=== PATIENT | female | born 1990 | race Caucasian/White ===

== ENCOUNTER 2021-05-30 09:36 | Emergency (ER) | payer BC, SELFPAY ==
[2021-05-30] VITALS (8 sets, daily range): BP systolic 115–131; BP diastolic 64–90; PULSE 70–90; RESP 18–20; TEMP 36.6–36.7; O2SAT 98–100
--- NOTE | ~2021-05-30 | US_ITS ---
EXAMINATION: US OB <= 14 weeks fetus DATE: 05/30/2021 13:00 INDICATION: Abdominal pain in first trimester TECHNIQUE: Real-time pelvic transabdominal and transvaginal ultrasound was performed. COMPARISON: None. FINDINGS: The uterus measures 6.6 x 6.5 x 5.7 cm. There is an intrauterine gestational sac. There i s a 1.4 cm hypoechoic area adjacent to the gestational sac. A yolk sac is identified. heart mo tion is identified measuring 143 7 mm beats per minute (bpm) by M-mode Doppler. The crown rump length measures 7 mm , which correlates with an estimated gestational age of 6 weeks and 4 day(s) (+/ -) 4 day(s). The right ovary measures 4.2 x 2.3 x 2.5 cm. The left ovary measures 4.2 x 2.5 x 1.6 cm. There is nor mal vascular flow in the ovaries. There is no free fluid in the pelvis. IMPRESSION: 1. Live intrauterine with an estimated gestational age of 6 weeks and 4 day(s) (+/-) 4 day( s) and an estimated delivery date of 01/19/2022. 2. Small subchronic hematoma. Reviewed, dictated and finalized at location B. IMPRESSION: 1. Live intrauterine with an estimated gestational age of 6 weeks and 4 day(s) (+/-) 4 day(s) and an estimated delivery date of 01/19/2022. 2. Small subchronic hematoma.
[2021-05-30 10:41] LABS: Basophils Percent Auto 0.2 % (0.2-1.2); Eosinophils Absolute Auto 0.1 K/mm3 (0-0.3); Eosinophils Percent Auto 0.4 % (0-4.4); Hematocrit 42.4 % (37.0-47.0); Hemoglobin 14.8 g/dL (12.0-15.0); Immature Granulocyte Absolute 0.05 K/mm3 (0.00-0.031); Immature Granulocyte Percent A 0.4 % (0-0.5); Lymphocytes Absolute Auto 1.95 K/mm3 (0.9-3.2); Lymphocytes Percent Auto 14.5 % (18.3-44.2); Mean Corpuscular HGB Conc 34.9 g/dl (32-36); Mean Corpuscular Volume 85.8 fl (80-100); Mean Platelet Volume 8.8 fl (7.4-10.4); Monocytes Absolute Auto 0.7 K/mm3 (0.1-0.6); Neutrophils Absolute Auto 10.7 K/mm3 (1.3-6.7); Neutrophils Percent Auto 79.5 % (45.5-73.1); Platelet Count Result 310 k/mm3 (150-375); Red Blood Count 4.94 M/mm3 (4.2-5.4); Red Cell Distribution Width 11.7 % (11.5-14.5); White Blood Count 13.4 K/mm3 (4.5-10.0)
[2021-05-30 10:48] LABS: Alanine Aminotransferase 27 U/L (4-35); Albumin Level 5.3 g/dL (3.5-5.1); Alkaline Phosphatase 52 U/L (38-126); Anion Gap 15 mmol/L (8-16); Aspartate Amino Transferase 39 U/L (14-36); Blood Urea Nitrogen 11 mg/dL (7-17); Calcium 9.9 mg/dL (8.4-10.2); Carbon Dioxide 22 mmol/L (22-30); Chloride 102 mmol/L (98-107); Estimated CRCL calculation 93 ml/min; Estimated Glomerular Filt Rate > 60; Glucose 86 mg/dL (65-105); Lipase 65 U/L (23-300); Potassium 3.8 mmol/L (3.4-5.0); Sodium 139 mmol/L (137-145)
[2021-05-30 10:50] LABS: Add Urine Microscopic? YES; Appearance Urine Cloudy (Clear); Bacteria Urine 2+ /hpf; Bilirubin Urine Negative (Negative); Color Urine Amber (Yellow); Glucose Urine UA Negative (Negative); Ketones Urine 2+ mg/dL (Negative); Leukocyte Esterase Ur Trace LEU/UL (Negative); Mucus Urine Heavy /lpf; Nitrate Urine Negative (Negative); Protein Urine 2+ mg/dL (Negative); Squamous Epithelial Cell Urine Many /hpf (Few)
[2021-05-30 10:53] LABS: Blood Urine Negative (Negative); Specific Grav Ur 1.031 (1.001-1.035)
--- NOTE | 2021-05-30 12:17 | ED.NAVMDI ---
HPI - Nausea/Vomiting/Diarrhea General Chief complaint: Nausea/Vomiting/Diarrhea Stated complaint: 8 wks , hyperemesis Time Seen by Provider: 05/30/21 12:10 Source: RN notes reviewed History of Present Illness HPI Narrative: Patient presents to emergency department from home for nausea and vomiting. Patient states she is approximately [address] Orosco. Patient is states she has been having nausea vomiting for the past week and was recommended by OB to come in for IV fluids patient states is associated some generalized abdominal cramping she denies any vaginal bleeding or discharge. Patient states she has been taking Zofran at home with minimal relief she denies any fevers or chills chest pain shortness of breath or any other symptoms. States she has not had an ultrasound to identify uterine uterine Related Data Allergies Allergy/AdvReac Type Severity Reaction Status Date / Time antibotics Allergy Rash Uncoded 05/30/21 12:27 Review of Systems Review of Systems: Narrative: Gen.: Denies fevers or chills Eyes: Denies eye pain or visual changENT: Denies congestion Respiratory: Denies shortness of breath or cough CV: Denies chest pain or palpitations GI: See HPI Musculoskeletal: Denies back pain or muscle pain Neuro: Denies numbness, tingling, weakness or focal weakness Skin: Denies rash Except as documented, all other systems reviewed and negative [facility] Past Medical History Medical History (Updated 05/30/21 @ 14:38 by Adalid Díaz DO) Patient denies significant medical history Social History Social History (Updated 05/30/21 @ 12:18 by Adalid Díaz DO) Smoking status: Never smoker Exam Narrative: Exam Narrative: APPEARANCE: No acute distress, nontoxic, resting in bed EYES: EOMI HEENT: Normocephalic, atraumatic, OMM RESPIRATORY: No respiratory distress Clear to auscultation bilaterally with no rhonchi wheezing or rales. CARDIOVASCULAR: Regular rate and rhythm without murmurs rubs or gallops. ABDOMINAL: Soft, nontender, nondistended, no rebound or guarding MUSCULOSKELETAl: Moves all extremities. No clubbing, cyanosis or edema. NEURO: Awake and alert. Following commands, speech normal, no focal deficits SKIN:: Warm, dry. No rashes lesions or abrasions PSYCHIATRIC: Normal affect/mood, Course Course Emergency Course: Patient states she is feeling better at this time able to drink in the ED with no emesis Called discussed with Dr. Luis Melendez presentation work-up agrees with plan for discharge to follow-up as an outpatient. Discussed UA will send for culture but will hold antibiotics at this time feels patient was dehydrated with many squamous Discussed with patient results of workup and diagnosis. Discussed need for follow-up with primary care, proper use of medication, and reasons to return to the emergency department. Patient understands and agrees to current treatment plan Vital Signs Vital signs: Vital Signs Temperature 97.8 F 05/30/21 10:05 Pulse Rate 90 05/30/21 10:05 Respiratory Rate 18 05/30/21 10:05 Blood Pressure 115/82 05/30/21 10:05 Pulse Oximetry 100 05/30/21 10:05 Temperature 98.0 F 05/30/21 12:20 Pulse Rate 77 05/30/21 12:20 Respiratory Rate 20 05/30/21 12:20 Blood Pressure 121/83 05/30/21 13:46 Pulse Oximetry 98 05/30/21 14:15 MDM - Nausea/Vomiting/Diarrhea Lab Data Result diagrams: 05/30/21 10:31 05/30/21 10:31 Labs: Lab Results 05/30/21 05/30/21 05/30/21 Range/Units 10:31 10:31 10:32 WBC 13.4 H (4.5-10.0) K/mm3 RBC 4.94 (4.2-5.4) M/mm3 Hgb 14.8 (12.0-15.0) g/dL Hct 42.4 (37.0-47.0) % MCV 85.8 (80-100) fl MCH 30.0 (26-34) pg MCHC 34.9 (32-36) g/dl RDW 11.7 (11.5-14.5) % Plt Count 310 (150-375) k/mm3 MPV 8.8 (7.4-10.4) fl Immature Gran % (Auto) 0.4 (0-0.5) % Neut % (Auto) 79.5 H (45.5-73.1)
[2021-05-30] MEDS: PROMETHAZINE HCL 25 MG/ML AMPUL 12.5 MG IV PUSH (12:52)
[2021-05-30] MEDS: SODIUM CHLORIDE 0.9% IV 1,000 ML 999 ML IV CONT ×2 (12:52→14:00)
== END 2021-05-30 15:02 | disposition home or self-care (01) ==
PROVIDERS: Emergency Medicine; Emergency Provider Emergency Medicine; PCP Nurse Practitioner Family
DX: O21.0 Mild hyperemesis gravidarum (principal); Z3A.09 9 weeks gestation of pregnancy
CPT/HCPCS: 36415; 76801; 80053; 81001; 83690; 85025; 87086; 96361; 96374; 99284; J2550; J7030

== ENCOUNTER 2021-06-08 11:58 | Observation (INO) | payer BC, SELFPAY ==
--- NOTE | 2021-06-08 11:58 | OBADM ---
This patient, Tiff Christine, admitted to the OB room OB Post 116 for observation. Patient/family oriented to hospital policies and general routines including ID bracelet, bed and alarms, visiting hours, pain management, procedures, bathroom and other care routines, personal items, smoking policy, room service/diet, and visiting hours. Patient/Family are encouraged to report perceived risks to care and to ask questions if they do not understand what they are told or what they should do.
[2021-06-08 12:15] VITALS: BP 112/81; PULSE 98; RESP 18; TEMP 36.5
--- NOTE | 2021-06-08 12:20 | PC.NURSE ---
Pt states she thinks she is due some time in Jan but has not had an ultrasound yet to confirm dates. Pt also states allergy to all antibiotics except flagyl.
[2021-06-08] MEDS: METOCLOPRAMIDE HCL INJ 10 MG/2 ML VIAL IV PUSH ×2 (13:16→19:20)
[2021-06-08] MEDS: DEXTROSE 5%/LACTATED RINGERS 1,000 ML 999 ML IV CONT (13:16)
[2021-06-08 13:21] LABS: Basophils Percent Auto 0.3 % (0.2-1.2); Eosinophils Absolute Auto 0.1 K/mm3 (0-0.3); Eosinophils Percent Auto 0.5 % (0-4.4); Hematocrit 39.5 % (37.0-47.0); Hemoglobin 13.9 g/dL (12.0-15.0); Immature Granulocyte Absolute 0.02 K/mm3 (0.00-0.031); Immature Granulocyte Percent A 0.2 % (0-0.5); Lymphocytes Absolute Auto 1.67 K/mm3 (0.9-3.2); Lymphocytes Percent Auto 14.8 % (18.3-44.2); Mean Corpuscular HGB Conc 35.2 g/dl (32-36); Mean Corpuscular Hemoglobin 30.1 pg (26-34); Mean Corpuscular Volume 85.5 fl (80-100); Monocytes Absolute Auto 0.6 K/mm3 (0.1-0.6); Monocytes Percent Auto 5.6 % (2.6-8.5); Neutrophils Absolute Auto 8.9 K/mm3 (1.3-6.7); Neutrophils Percent Auto 78.6 % (45.5-73.1); Platelet Count Result 296 k/mm3 (150-375); Red Blood Count 4.62 M/mm3 (4.2-5.4); Red Cell Distribution Width 11.6 % (11.5-14.5); White Blood Count 11.3 K/mm3 (4.5-10.0)
[2021-06-08 14:07] VITALS: BMI 20.8
[2021-06-08] MEDS: DEXTROSE 5%/LACTATED RINGERS 1,000 ML 150 ML IV CONT ×2 (14:17→20:57)
[2021-06-08 14:29] LABS: Alanine Aminotransferase 29 U/L (4-35); Albumin Level 4.2 g/dL (3.5-5.1); Alkaline Phosphatase 43 U/L (38-126); Anion Gap 12 mmol/L (8-16); Aspartate Amino Transferase 23 U/L (14-36); Bilirubin,Total 1.2 mg/dL (0.2-1.3); Blood Urea Nitrogen 12 mg/dL (7-17); Carbon Dioxide 21 mmol/L (22-30); Chloride 100 mmol/L (98-107); Estimated CRCL calculation 107 ml/min; Estimated Glomerular Filt Rate > 60; Glucose 268 mg/dL (65-105); Potassium 3.8 mmol/L (3.4-5.0); Sodium 133 mmol/L (137-145)
[2021-06-08 15:21] LABS: Add Urine Microscopic? YES; Appearance Urine Cloudy (Clear); Bacteria Urine Trace /hpf; Bilirubin Urine Negative (Negative); Blood Urine Negative (Negative); Color Urine Yellow (Yellow); Glucose Urine UA 3+ mg/dL (Negative); Ketones Urine 2+ mg/dL (Negative); Leukocyte Esterase Ur Trace LEU/UL (NEGATIVE); Mucus Urine Rare /lpf; Nitrate Urine Negative (Negative); Protein Urine Negative (Negative); Squamous Epithelial Cell Urine Many /hpf (Few); Urobilinogen Urine Negative mg/dL (<2.0)
[2021-06-08 15:44] LABS: Specific Grav Ur 1.031 (1.001-1.035)
[2021-06-08 15:47] VITALS: BP 98/56; PULSE 68
[2021-06-08 19:13] VITALS: BP 106/58; PULSE 71
[2021-06-08 19:16] VITALS: RESP 16; TEMP 37.1
[2021-06-08] MEDS: diphenhydrAMINE HCl INJ 50 MG/ML VIAL 25 MG IV PUSH (19:20)
[2021-06-09] MEDS: METOCLOPRAMIDE HCL INJ 10 MG/2 ML VIAL IV PUSH ×2 (01:10→08:33)
[2021-06-09] MEDS: DEXTROSE 5%/LACTATED RINGERS 1,000 ML 150 ML IV CONT (03:45)
[2021-06-09 03:46] VITALS: BP 104/60; PULSE 71; RESP 15; TEMP 36.6
[2021-06-09 08:00] VITALS: TEMP 36.6
--- NOTE | 2021-06-09 08:00 | PC.NURSE ---
Patient states she is feeling better this morning and would feel comfortable going home. Patient was able to eat jello this morning without nausea or emesis and is able to tolerate water. Will discuss plan of care with Dr. Ham.
--- NOTE | 2021-06-09 08:35 | PM.IMHP ---
H&P: HPI History of Present Illness Date/Time: 06/09/21 08:35 30-year-old 1 para 0 at about 9 weeks gestation returns with nausea vomiting and dehydration. She had an ultrasound early in the ER few weeks ago confirming an IUP. She is admitted for IV fluids an maintenance therapy Chief Complaint: nausea and vomiting Review of Systems Review of Systems: All systems reviewed & are unremarkable except as noted in HPI and below PMFSH Past Medical History Medical History Patient denies significant medical history Social History Social History Smoking status: Never smoker Meds Home Medications and Allergies Home Medications Medication Instructions Recorded Confirmed Type metoclopramide HCl 10 mg PO Q6H PRN 06/08/21 06/08/21 History ondansetron 4 mg PO Q6H PRN 06/08/21 06/08/21 History promethazine 12.5 mg PO TID PRN 06/08/21 06/08/21 History Allergies Allergy/AdvReac Type Severity Reaction Status Date / Time antibotics Allergy Rash Uncoded 05/30/21 12:27 Vital Signs Vital Signs - 24 hr 06/08/21 12:15 06/08/21 15:47 06/08/21 19:13 Temperature 97.7 F Pulse Rate 98 68 71 Respiratory Rate 18 Blood Pressure 112/81 98/56 L 106/58 L 06/08/21 19:16 06/09/21 03:46 06/09/21 08:00 Temperature 98.8 F 97.9 F 97.9 F Pulse Rate 71 Respiratory Rate 16 15 Blood Pressure 104/60 Exam Const: General: no acute distress Eyes: General: appearance normal, both eyes and all related structures Neck: Neck: supple and no JVD Thyroid: thyroid normal Resp: Effort & Inspection: normal respiratory effort Auscultation: clear to auscultation bilaterally Cardio: Rate: regular rate Rhythm: regular rhythm GI: Inspection: non-distended GI Palp: Yes Soft to palpation, No Tenderness to palpation present (GI) and No Guarding due to palpation present (GI) Auscultation: normal bowel sounds : General: Yes bladder normal to palpation External Female Exam: normal external appearance Speculum Exam - Vagina: normal vaginal discharge and No vaginal bleeding Speculum Exam - Cervix: nontender Bimanual exam- vagina & uterus: bladder normal to palpation and No Cervical tenderness present OB/external & speculum: No vaginal bleeding Skin: General skin exam: no rashes or lesions noted Extrem: General: normal to inspection and no edema Psych: Mental Status: mental status grossly normal Affect: normal affect H&P: Results Labs Labs: Short CBC 06/08/21 Range/Units 13:06 WBC 11.3 H (4.5-10.0) K/mm3 Hgb 13.9 (12.0-15.0) g/dL Hct 39.5 (37.0-47.0) % Plt Count 296 (150-375) k/mm3 BMP 06/08/21 13:49 Sodium 133 L Potassium 3.8 Chloride 100 Carbon Dioxide 21 L BUN 12 Creatinine 0.60 L Glucose 268 H Calcium 9.0 Liver Function 06/08/21 Range/Units 13:49 Total Bilirubin 1.2 (0.2-1.3) mg/dL AST 23 (14-36) U/L ALT 29 (4-35) U/L Alkaline Phosphatase 43 (38-126) U/L Albumin 4.2 (3.5-5.1) g/dL Urine 06/08/21 Range/Units 15:00 Urine Color Yellow (Yellow) Urine Appearance Cloudy H (Clear) Urine pH 6.0 (5.0-9.0) Ur Specific [place] 1.031 (1.001-1.035) Urine Protein Negative (Negative) mg/dL Urine Glucose (UA) 3+ H (Negative) mg/dL Assessment and Plan Additional Plan impression: 9 week with hyperemesis gravidarum Plan: IV hydration and support
--- NOTE | 2021-06-09 08:37 | PM.DS ---
DS: Admitting Diagnosis Admitting Diagnosis Admitting Diagnosis: nausea and vomiting in 1st trimester DS: Summary Hospital Course Hospital Course: the patient was admitted with nausea of being. She was able the eat after 24 hours of IV hydration and supportive therapy. Time Spent with Patient Time attestation: Total time spent providing and/or coordinating discharge services: Exam Const: General: no acute distress Eyes: General: appearance normal, both eyes and all related structures Neck: Neck: supple and no JVD Thyroid: thyroid normal Resp: Effort & Inspection: normal respiratory effort Auscultation: clear to auscultation bilaterally Cardio: Rate: regular rate Rhythm: regular rhythm GI: Inspection: non-distended GI Palp: Yes Soft to palpation, No Tenderness to palpation present (GI) and No Guarding due to palpation present (GI) Auscultation: normal bowel sounds : General: Yes bladder normal to palpation External Female Exam: normal external appearance Speculum Exam - Vagina: normal vaginal discharge and No vaginal bleeding Speculum Exam - Cervix: nontender Bimanual exam- vagina & uterus: bladder normal to palpation and No Cervical tenderness present OB/external & speculum: No vaginal bleeding Skin: General skin exam: no rashes or lesions noted Extrem: General: normal to inspection and no edema Psych: Mental Status: mental status grossly normal Affect: normal affect DS: Data Data Completed and Pending Labs on day of discharge: Labs from last 24 hours 06/08/21 06/08/21 06/08/21 15:00 13:49 13:06 WBC 11.3 H RBC 4.62 Hgb 13.9 Hct 39.5 MCV 85.5 MCH 30.1 MCHC 35.2 RDW 11.6 Plt Count 296 MPV 9.0 Immature Gran % (Auto) 0.2 Neut % (Auto) 78.6 H Lymph % (Auto) 14.8 L [place] % (Auto) 5.6 Eos % (Auto) 0.5 Baso % (Auto) 0.3 Lymph # (Auto) 1.67 [place] # (Auto) 0.6 Eos # (Auto) 0.1 Baso # (Auto) 0.0 Abs Immat Gran (auto) 0.02 Absolute Neuts (auto) 8.9 H Absolute Nucleated RBC 0.0 Nucleated RBC % 0.0 Sodium 133 L Potassium 3.8 Chloride 100 Carbon Dioxide 21 L Anion Gap 12 BUN 12 Creatinine 0.60 L Estim Creat Clear Calc 107 Estimated GFR > 60 Glucose 268 H Calcium 9.0 Total Bilirubin 1.2 AST 23 ALT 29 Alkaline Phosphatase 43 Total Protein 7.0 Albumin 4.2 Urine Color Yellow Urine Appearance Cloudy H Urine pH 6.0 Ur Specific [place] 1.031 Urine Protein Negative Urine Glucose (UA) 3+ H Urine Ketones 2+ H Ur Blood (Man) Negative Urine Nitrate Negative Urine Bilirubin Negative Urine Urobilinogen Negative Ur Leukocyte Esterase Trace H Urine RBC 3-5 H Urine WBC 4-6 H Ur Squamous Epith Cells Many H Urine Bacteria Trace Urine Mucus Rare Discharge Plan Discharge Attending physician on discharge: Juanpablo Yao Discharging Clinician: Juanpablo Yao Anticipated Discharge Date/Time: 06/09/21 08:38 Patient Disposition: Home, Self-Care Activity: as tolerated Diet: as tolerated Discharge Instructions: OB ANTEPARTUM DISCHARGE INSTRUCTIONS This information is given to help you properly care for yourself at home after your discharge from the hospital. Follow these instructions until your doctor tells you otherwise. DIET: Small Frequent Feedings Drink at Least Eight 8-Ounce Glasses of Caffeine-Free Beverages Daily ACTIVITY: As Tolerated RETURN TO LABOR AND DELIVERY IF YOU HAVE: Any Leakage of Fluid More than 6 Contractions in an Hour Vaginal Bleeding Contractions may feel like abdominal pain, tightening, cramping, pressure, back ache, or thigh ache. FOLLOW-UP CARE: Call Office and Make Appointment To see in 1 week Valuables released to patient or family? N/A Medications from home returned to patient? N/A I Acknowledge Receipt of and Understand the Above In
--- NOTE | 2021-06-09 08:39 | PM.OBPNVD ---
OB - PN: Subj Subjective Date/time seen: 06/09/21 08:39 Interval history: Feeling better OB - PN: Obj Data Labs CBC & Chem 7: 06/08/21 13:06 06/08/21 13:49 Labs: Laboratory Results - last 24 hr 06/08/21 06/08/21 06/08/21 13:06 13:49 15:00 WBC 11.3 H RBC 4.62 Hgb 13.9 Hct 39.5 MCV 85.5 MCH 30.1 MCHC 35.2 RDW 11.6 Plt Count 296 MPV 9.0 Immature Gran % (Auto) 0.2 Neut % (Auto) 78.6 H Lymph % (Auto) 14.8 L [place] % (Auto) 5.6 Eos % (Auto) 0.5 Baso % (Auto) 0.3 Lymph # (Auto) 1.67 [place] # (Auto) 0.6 Eos # (Auto) 0.1 Baso # (Auto) 0.0 Abs Immat Gran (auto) 0.02 Absolute Neuts (auto) 8.9 H Absolute Nucleated RBC 0.0 Nucleated RBC % 0.0 Sodium 133 L Potassium 3.8 Chloride 100 Carbon Dioxide 21 L Anion Gap 12 BUN 12 Creatinine 0.60 L Estim Creat Clear Calc 107 Estimated GFR > 60 Glucose 268 H Calcium 9.0 Total Bilirubin 1.2 AST 23 ALT 29 Alkaline Phosphatase 43 Total Protein 7.0 Albumin 4.2 Urine Color Yellow Urine Appearance Cloudy H Urine pH 6.0 Ur Specific [place] 1.031 Urine Protein Negative Urine Glucose (UA) 3+ H Urine Ketones 2+ H Ur Blood (Man) Negative Urine Nitrate Negative Urine Bilirubin Negative Urine Urobilinogen Negative Ur Leukocyte Esterase Trace H Urine RBC 3-5 H Urine WBC 4-6 H Ur Squamous Epith Cells Many H Urine Bacteria Trace Urine Mucus Rare OB - PN A/P Time Spent With Patient Time: Total time spent is greater than 50% in coordination of care (as documented) at patient's floor/unit and/or counseling patient: Time with patient: less than 15 minutes Review of Systems Review of Systems: All systems reviewed & are unremarkable except as noted in HPI and below Exam Const: General: no acute distress Eyes: General: appearance normal, both eyes and all related structures Neck: Neck: supple and no JVD Thyroid: thyroid normal Resp: Effort & Inspection: normal respiratory effort Auscultation: clear to auscultation bilaterally Cardio: Rate: regular rate Rhythm: regular rhythm GI: Inspection: non-distended GI Palp: Yes Soft to palpation, No Tenderness to palpation present (GI) and No Guarding due to palpation present (GI) Auscultation: normal bowel sounds : General: Yes bladder normal to palpation External Female Exam: normal external appearance Speculum Exam - Vagina: normal vaginal discharge and No vaginal bleeding Speculum Exam - Cervix: nontender Bimanual exam- vagina & uterus: bladder normal to palpation and No Cervical tenderness present OB/external & speculum: No vaginal bleeding Skin: General skin exam: no rashes or lesions noted Extrem: General: normal to inspection and no edema Psych: Mental Status: mental status grossly normal Affect: normal affect
--- NOTE | 2021-06-09 08:40 | PC.NURSE ---
Dr. Ham at patient bedside. Plan of care discussed with patient. Plan for discharge.
--- NOTE | 2021-06-09 08:53 | PC.NURSE ---
Discharge instructions reviewed with patient. Patient states understanding of discharge instructions and denies questions. Additional diet information and hyperemesis information provided to and reviewed with patient prior to discharge.
== END 2021-06-09 08:56 | disposition home or self-care (01) ==
PROVIDERS: Admitting Provider Obstetrics & Gynecology; PCP Nurse Practitioner Family; Visit Provider Obstetrics & Gynecology
DX: O21.0 Mild hyperemesis gravidarum (principal); Z3A.09 9 weeks gestation of pregnancy
CPT/HCPCS: 36415; 80053; 81001; 85025; 87086; 96361; 96374; 96375; 96376; G0378; G0379; J1200; J2765; J7121

== ENCOUNTER 2021-06-16 12:10 | Observation (INO) | payer BC, SELFPAY ==
[2021-06-16 12:59] VITALS: BP 109/77; PULSE 76; RESP 16; TEMP 36.7
--- NOTE | 2021-06-16 13:00 | OBADM ---
This patient, Tiff Christine, admitted to the OB room 114 on 06/16/21 at 1210 for observation for hyperemesis. Patient/family oriented to hospital policies and general routines including ID bracelet, bed and alarms, visiting hours, pain management, procedures, bathroom and other care routines, personal items, smoking policy, room service/diet, and visiting hours. Patient/Family are encouraged to report perceived risks to care and to ask questions if they do not understand what they are told or what they should do.
[2021-06-16] MEDS: DEXTROSE 5%/LACTATED RINGERS 1,000 ML 999 ML IV CONT (13:10)
[2021-06-16] MEDS: PROMETHAZINE HCL 25 MG/ML AMPUL 12.5 MG IV PUSH ×2 (13:11→20:27)
[2021-06-16] MEDS: DEXTROSE 5%/LACTATED RINGERS 1,000 ML 150 ML IV CONT ×2 (14:14→19:03)
--- NOTE | 2021-06-16 14:14 | PC.NURSE ---
Offered Reglan; pt declines at this time. Is going to try to sleep.
[2021-06-16] MEDS: METOCLOPRAMIDE HCL INJ 10 MG/2 ML VIAL IV PUSH ×2 (15:48→22:30)
[2021-06-16 15:50] VITALS: BP 95/60; PULSE 66; RESP 16; TEMP 37.4
--- NOTE | 2021-06-16 16:02 | PC.NURSE ---
Dr. De was informed nausea starting to decrease, has had approx. 1 1/2 liters of IV fluids, but pt hasn't voided yet. Informed pt just agreed and was given Reglan to go along with her earlier dose of Phenergan. Hasn't taken anything in PO yet.
--- NOTE | 2021-06-16 17:33 | PC.NURSE ---
Dr. De informed pt hasn't had an emesis since arrival and has now had a cup of ice chips and just given a popcicle. Pt hasn't voided yet, but thought she would be able to after eating the popcicle.
[2021-06-16 18:36] LABS: Add Urine Microscopic? YES; Appearance Urine Cloudy (Clear); Bacteria Urine 1+ /hpf; Bilirubin Urine Negative (Negative); Blood Urine Negative (Negative); Color Urine Yellow (Yellow); Glucose Urine UA 3+ mg/dL (Negative); Ketones Urine 1+ mg/dL (Negative); Leukocyte Esterase Ur Trace LEU/UL (Negative); Mucus Urine Few /lpf; Nitrate Urine Negative (Negative); Protein Urine Negative (Negative); RBC Urine 0-2 /hpf (0-2); Specific Grav Ur 1.023 (1.001-1.035); Squamous Epithelial Cell Urine Many /hpf (Few)
--- NOTE | 2021-06-16 19:43 | PC.NURSE ---
Dr. De updated on pt urine results. No other new orders at this time.
[2021-06-16 20:19] VITALS: BP 101/69; PULSE 73; RESP 16; TEMP 36.1; O2SAT 98
--- NOTE | 2021-06-16 22:12 | PC.NURSE ---
Updated Dr. De on pt. Pt has complaints of 5/10 nausea currently. Order received for pt to stay overnight and continue IV hydration and see how she is in the AM. Order received for Pepcid 20mg IV BID.
[2021-06-16] MEDS: FAMOTIDINE 20 MG/2 ML VIAL IV PUSH (22:26)
[2021-06-16 22:34] VITALS: BP 107/73; PULSE 70; RESP 18; TEMP 36.2; O2SAT 99
--- NOTE | 2021-06-16 22:39 | PC.NURSE ---
pt okay with the plan to stay overnight and get hydrated as well as medications. VS obtained and pt tucked in for the night with lights turned out. Instructed to call out if she needs anything or if her nausea gets worse. Pt agrees and understands the plan.
[2021-06-17] MEDS: DEXTROSE 5%/LACTATED RINGERS 1,000 ML 150 ML IV CONT (01:59)
[2021-06-17 05:14] VITALS: BP 101/66; PULSE 71; RESP 15; TEMP 36.2; O2SAT 98
[2021-06-17] MEDS: METOCLOPRAMIDE HCL INJ 10 MG/2 ML VIAL IV PUSH (05:22)
--- NOTE | 2021-06-17 05:37 | WPDOBADMIT ---
Obstetrics - Admit Note Admission Note: record reviewed. Additions to the history and/or subsequent changes in the physical findings follow. 30 y/o at 10 weeks with hyperemesis. Says she hasn't kept much down for the last 3-4 days. No fever. No diarrhea. No vaginal bleeding. Taking Reglan and Phenergan at home. Feels better this morning after IV hydration. AVSS ABD soft, nontender, gravid EXT nontender A: Hyperemesis gravidarum with dehydration P: Home to continue antiemetics. Add famotidine. F/u as scheduled.
[2021-06-17 09:00] VITALS: RESP 16; TEMP 36.6
[2021-06-17] MEDS: FAMOTIDINE 20 MG/2 ML VIAL IV PUSH (09:00)
== END 2021-06-17 10:56 | disposition home or self-care (01) ==
PROVIDERS: Admitting Provider Obstetrics & Gynecology; PCP Nurse Practitioner Family; Visit Provider Obstetrics & Gynecology
DX: O21.0 Mild hyperemesis gravidarum (principal); Z3A.10 10 weeks gestation of pregnancy
CPT/HCPCS: 81001; 96361; 96374; 96375; 96376; G0378; G0379; J2550; J2765; J7121

== ENCOUNTER 2021-06-21 16:06 | Observation (INO) | payer BC, SELFPAY ==
--- NOTE | 2021-06-21 16:06 | OBADM ---
This patient, Tiff Christine, admitted to the OB room OB Post 117 for observation. Patient/family oriented to hospital policies and general routines including ID bracelet, bed and alarms, visiting hours, pain management, procedures, bathroom and other care routines, personal items, smoking policy, room service/diet, and visiting hours. Patient/Family are encouraged to report perceived risks to care and to ask questions if they do not understand what they are told or what they should do.
[2021-06-21 16:54] LABS: Hematocrit 40.5 % (37.0-47.0); Hemoglobin 14.1 g/dL (12.0-15.0); Mean Corpuscular HGB Conc 34.8 g/dl (32-36); Mean Corpuscular Hemoglobin 29.8 pg (26-34); Mean Corpuscular Volume 85.6 fl (80-100); Platelet Count Result 293 k/mm3 (150-375); Red Blood Count 4.73 M/mm3 (4.2-5.4); Red Cell Distribution Width 11.7 % (11.5-14.5)
[2021-06-21 16:59] LABS: Add Urine Microscopic? YES; Appearance Urine Clear (Clear); Bilirubin Urine Negative (Negative); Blood Urine Negative (Negative); Color Urine Yellow (Yellow); Glucose Urine UA Negative (Negative); Ketones Urine 2+ mg/dL (Negative); Leukocyte Esterase Ur Trace LEU/UL (NEGATIVE); Mucus Urine Rare /lpf; Nitrate Urine Negative (Negative); Protein Urine 1+ mg/dL (Negative); RBC Urine 0-2 /hpf (0-2); Specific Grav Ur 1.028 (1.001-1.035); Squamous Epithelial Cell Urine Few /hpf (Few); WBC Urine 0-3 /hpf (0-3)
[2021-06-21] MEDS: ONDANSETRON INJ 4 MG/2 ML VIAL IV PUSH (16:59)
--- NOTE | 2021-06-21 16:59 | PM.OBTRLD ---
OB - Triage/Final Diagnosis Visit Information Comments/Additional reasons for admission: I have assessed the risk for this patient, Tiff Blancokirbykrish, and determined that she would benefit from observation care. Evaluation Laboratory results: Laboratory Tests 06/21/21 16:44 WBC 13.0 H RBC 4.73 Hgb 14.1 Hct 40.5 MCV 85.6 MCH 29.8 MCHC 34.8 RDW 11.7 Plt Count 293 MPV 9.0
[2021-06-21] MEDS: THIAMINE HCL INJ 100 MG, FOLIC ACID INJ 1 MG, MULTIVITAMINS-12 INJ VIAL 1 5 ML, MULTIVI... 150 MG IV CONT (17:04)
[2021-06-21] MEDS: PROMETHAZINE HCL 25 MG/ML AMPUL 12.5 MG IV PUSH (17:04)
[2021-06-21 17:05] LABS: Alanine Aminotransferase 40 U/L (4-35); Albumin Level 4.8 g/dL (3.5-5.1); Alkaline Phosphatase 64 U/L (38-126); Anion Gap 15 mmol/L (8-16); Aspartate Amino Transferase 22 U/L (14-36); Bilirubin,Total 1.5 mg/dL (0.2-1.3); Blood Urea Nitrogen 9 mg/dL (7-17); Carbon Dioxide 18 mmol/L (22-30); Chloride 101 mmol/L (98-107); Estimated Glomerular Filt Rate > 60; Glucose 81 mg/dL (65-110); Potassium 3.8 mmol/L (3.4-5.0); Sodium 134 mmol/L (137-145)
[2021-06-21 17:09] VITALS: BP 113/78; PULSE 76
--- NOTE | 2021-06-21 17:20 | PC.NURSE ---
FHT doppled 150's
--- NOTE | 2021-06-21 17:30 | PC.NURSE ---
Updated Dr. Orosco with lab results. No new orders at present time.
[2021-06-21 17:31] VITALS: TEMP 36.6
--- NOTE | 2021-06-21 19:02 | PM.IMHP ---
H&P: HPI History of Present Illness Date/Time: 06/21/21 19:02 30 yo at 10w6d who presents with persistent hyperemesis. Pt has had intractable N/V since the start of her . She states she has not been able to keep anything down all day today. Pt has Reglan and Phenergan at home. She states she has taken 2 doses of [place] today but was not able to keep either down. Pt has not taken the phenergan as it make her sleepy. She states zofran makes her symptoms worse. She denies any fevers or chills. She denies any diarrhea. She denies any sick contacts. Chief Complaint: Hyperemesis Review of Systems Review of Systems: All systems reviewed & are unremarkable except as noted in HPI and below PMFSH Past Medical History Medical History Patient denies significant medical history Social History Social History Smoking status: Never smoker Meds Home Medications and Allergies Home Medications Medication Instructions Recorded Confirmed Type metoclopramide HCl 10 mg PO Q6H PRN 06/08/21 06/21/21 History ondansetron 4 mg PO Q6H PRN 06/08/21 06/21/21 History promethazine 12.5 mg PO TID PRN 06/08/21 06/21/21 History famotidine [Pepcid] 20 mg PO BID #60 tablet 06/17/21 06/21/21 Rx Allergies Allergy/AdvReac Type Severity Reaction Status Date / Time azithromycin Allergy Swelling Verified 06/21/21 17:31 of Lip/Tongue/Throat cephalexin Allergy Swelling Verified 06/21/21 17:31 of Lip/Tongue/Throat ciprofloxacin [From Cipro] Allergy Swelling Verified 06/21/21 17:31 of Lip/Tongue/Throat Penicillins Allergy Swelling Verified 06/21/21 17:31 of Lip/Tongue/Throat Vital Signs Vital Signs - 24 hr 06/21/21 17:09 06/21/21 17:31 Temperature 36.6 C Pulse Rate 76 Blood Pressure 113/78 Exam Const: General: cooperative and no acute distress Eyes: General: appearance normal, both eyes and all related structures Resp: Effort & Inspection: normal respiratory effort and able to speak in complete sentences Cardio: Rate: regular rate Rhythm: regular rhythm GI: Inspection: normal to inspection GI Palp: No abdominal tenderness H&P: Results Labs Labs: Short CBC 06/21/21 Range/Units 16:44 WBC 13.0 H (4.5-10.0) K/mm3 Hgb 14.1 (12.0-15.0) g/dL Hct 40.5 (37.0-47.0) % Plt Count 293 (150-375) k/mm3 BMP 06/21/21 16:44 Sodium 134 L Potassium 3.8 Chloride 101 Carbon Dioxide 18 L BUN 9 Creatinine 0.60 L Glucose 81 Calcium 10.0 Liver Function 06/21/21 Range/Units 16:44 Total Bilirubin 1.5 H (0.2-1.3) mg/dL AST 22 (14-36) U/L ALT 40 H (4-35) U/L Alkaline Phosphatase 64 (38-126) U/L Albumin 4.8 (3.5-5.1) g/dL Urine 06/21/21 Range/Units 16:45 Urine Color Yellow (Yellow) Urine Appearance Clear (Clear) Urine pH 6.0 (5.0-9.0) Ur Specific [place] 1.028 (1.001-1.035) Urine Protein 1+ H (Negative) mg/dL Urine Glucose (UA) Negative (Negative) mg/dL Assessment and Plan Assessment and plan (1) Supervision of high risk , unspecified, unspecified trimester: Code(s): O09.90 - Supervision of high risk , unspecified, unspecified trimester Status: Acute (2) Hyperemesis affecting , antepartum: Code(s): O21.0 - Mild hyperemesis gravidarum Status: Acute Assessment and Plan: pt presents complaining of intractable N/V pt has tried PO reglan at home but was unable to keep it down CBC all wnl but WBC of 13 ALT, bilirubin mildly elevated on CMP Pt noted to have +1 protein and 2+ ketones Pt admitted for IV antiemetic therapy and IVF hydration Pt received a banana bag with thiamine will schedule IV phenergan and zofran scheduled Will PO challenge once pt will tolerate
[2021-06-21] MEDS: PROMETHAZINE HCL 12.5 MG TABLET PO (21:12)
--- NOTE | 2021-06-21 22:02 | PC.NURSE ---
2107 - Pt states her nausea is a 8 out of 10. PO Phenergan will be given. Pt given popsicle, crackers, and water per her request. Plan of care discussed with pt, pt agrees and has no questions or needs at this time. Pt will call out if she has any needs; call light within reach.
[2021-06-22] MEDS: PROMETHAZINE HCL 12.5 MG TABLET PO ×3 (03:08→12:01)
[2021-06-22] MEDS: ONDANSETRON INJ 4 MG/2 ML VIAL IV PUSH (03:08)
[2021-06-22 03:10] VITALS: RESP 18; TEMP 36.1; BMI 19.9
[2021-06-22 03:12] VITALS: BP 102/76; PULSE 71; PULSE 80; O2SAT 100
[2021-06-22 07:30] VITALS: TEMP 36.6
[2021-06-22 07:42] VITALS: PULSE 87; O2SAT 100
[2021-06-22 07:43] VITALS: BP 118/79; PULSE 74
--- NOTE | 2021-06-22 07:58 | PC.NURSE ---
Dr. Orosco at patient bedside to discuss plan of care and assessment. Patient states understanding of plan of care and denies questions.
[2021-06-22] MEDS: ONDANSETRON HCL ODT 4 MG TABLET PO (10:14)
--- NOTE | 2021-06-22 10:40 | PC.NURSE ---
Patient tolerating cheerios, ice and water. Patient states intermittent nausea present, resolves in takes break from eating. Patient states she is feeling much better since yesterday.
--- NOTE | 2021-06-22 12:03 | PC.NURSE ---
Discharge instructions reviewed with patient, patient educated on medication and when to take them and the medication schedule. [place] diet reviewed with patient. Patient states understanding of discharge instructions and denies questions.
--- NOTE | 2021-06-22 14:16 | PM.DS ---
DS: Admitting Diagnosis Admitting Diagnosis Hyperemesis DS: Discharge Diagnosis Discharge Diagnosis (1) Hyperemesis affecting , antepartum: Code(s): O21.0 - Mild hyperemesis gravidarum Status: Acute DS: Summary Hospital Course Hospital Course: 30 yo at 10w GA who presented with intractable N/V in despite PO antiemetics. Pt was admitted for IV antiemetics and IVF hydration. Pt symptoms improved with IV zofran and phenergan and an IV banana bag with thiamine. Pt was transitioned to PO antiemetics this AM and was able to tolerate PO. Pt stable this AM. Status at Discharge Functional status at discharge: independent ambulation Overall status at discharge: patient is progressing back to baseline Time Spent with Patient Time attestation: Total time spent providing and/or coordinating discharge services: Time spent: Less than 30 minutes Exam Const: General: cooperative, comfortable, no acute distress and well developed Orientation/consciousness: patient oriented x3 Eyes: General: appearance normal, both eyes and all related structures Neck: Neck: normal visual inspection Resp: Effort & Inspection: normal respiratory effort and able to speak in complete sentences Auscultation: clear to auscultation bilaterally Cardio: Rate: regular rate Rhythm: regular rhythm GI: Inspection: normal to inspection Skin: General skin exam: normal color and no rashes or lesions noted Neuro: General: patient oriented x3 Extrem: General: normal to inspection and full ROM Psych: Appearance: grossly normal and well kempt Mental Status: mental status grossly normal Affect: normal affect DS: Data Data Completed and Pending Labs on day of discharge: Labs from last 24 hours 06/21/21 06/21/21 06/21/21 16:45 16:44 16:44 WBC 13.0 H RBC 4.73 Hgb 14.1 Hct 40.5 MCV 85.6 MCH 29.8 MCHC 34.8 RDW 11.7 Plt Count 293 MPV 9.0 Sodium 134 L Potassium 3.8 Chloride 101 Carbon Dioxide 18 L Anion Gap 15 BUN 9 Creatinine 0.60 L Estim Creat Clear Calc Not Reportable Estimated GFR > 60 Glucose 81 Calcium 10.0 Total Bilirubin 1.5 H AST 22 ALT 40 H Alkaline Phosphatase 64 Total Protein 8.0 Albumin 4.8 Urine Color Yellow Urine Appearance Clear Urine pH 6.0 Ur Specific [place] 1.028 Urine Protein 1+ H Urine Glucose (UA) Negative Urine Ketones 2+ H Ur Blood (Man) Negative Urine Nitrate Negative Urine Bilirubin Negative Urine Urobilinogen 2.0 H Ur Leukocyte Esterase Trace H Urine RBC 0-2 Urine WBC 0-3 Ur Squamous Epith Cells Few Urine Mucus Rare Discharge Plan Discharge Discharging Clinician: David Orosco Patient Disposition: Home, Self-Care Activity: as tolerated Diet: as tolerated and bland Discharge Instructions: OB ANTEPARTUM DISCHARGE INSTRUCTIONS This information is given to help you properly care for yourself at home after your discharge from the hospital. Follow these instructions until your doctor tells you otherwise. DIET: Small Frequent Feedings Drink at Least Eight 8-Ounce Glasses of Caffeine-Free Beverages Daily Desha Advance As Tolerated Additional Diet Instructions: ACTIVITY: As Tolerated Increase Periods of Rest RETURN TO LABOR AND DELIVERY IF YOU HAVE: Contractions 5-7 Minutes Apart with Increasing Intensity Vaginal Bleeding Additional Reasons to Return to Labor and Delivery: Contractions may feel like abdominal pain, tightening, cramping, pressure, back ache, or thigh ache. FOLLOW-UP CARE: Keep Next Scheduled Appointment to see Dr. Ana Luisa Waller released to patient or family? N/A Medications from home returned to patient? N/A I Acknowledge Receipt of and Understand the Above Instructions IF YOU HAVE ANY QUESTIONS REGARDING THESE INSTRUCTIONS, PLEASE CALL [phone]. IF PROBLEMS ARISE, CALL YOUR PROVID
== END 2021-06-22 12:23 | disposition home or self-care (01) ==
PROVIDERS: Admitting Provider Student in an Organized Health Care Education/Training Program; PCP Nurse Practitioner Family; Visit Provider Student in an Organized Health Care Education/Training Program
DX: O21.0 Mild hyperemesis gravidarum (principal); Z3A.10 10 weeks gestation of pregnancy
CPT/HCPCS: 36415; 80053; 81001; 85027; 96374; 96375; A9270; G0378; G0379; J2405; J2550; J3411; J3475; J7121

== ENCOUNTER 2021-07-01 19:09 | Emergency (ER) | payer BC, SELFPAY ==
[2021-07-01 20:18] VITALS: BP 123/87; PULSE 90; RESP 16; TEMP 36.8; O2SAT 100
[2021-07-01 22:38] VITALS: BP 106/81; PULSE 91; RESP 14; O2SAT 100
[2021-07-01 23:03] LABS: Basophils Percent Auto 0.3 % (0.2-1.2); Eosinophils Absolute Auto 0.1 K/mm3 (0-0.3); Eosinophils Percent Auto 1.1 % (0-4.4); Hemoglobin 13.1 g/dL (12.0-15.0); Immature Granulocyte Absolute 0.03 K/mm3 (0.00-0.031); Immature Granulocyte Percent A 0.3 % (0-0.5); Lymphocytes Absolute Auto 2.74 K/mm3 (0.9-3.2); Lymphocytes Percent Auto 26.6 % (18.3-44.2); Mean Corpuscular HGB Conc 34.5 g/dl (32-36); Mean Corpuscular Hemoglobin 29.7 pg (26-34); Mean Corpuscular Volume 86.2 fl (80-100); Mean Platelet Volume 9.3 fl (7.4-10.4); Monocytes Absolute Auto 0.5 K/mm3 (0.1-0.6); Monocytes Percent Auto 5.2 % (2.6-8.5); Neutrophils Absolute Auto 6.9 K/mm3 (1.3-6.7); Neutrophils Percent Auto 66.5 % (45.5-73.1); Platelet Count Result 280 k/mm3 (150-375); Red Blood Count 4.41 M/mm3 (4.2-5.4); Red Cell Distribution Width 11.9 % (11.5-14.5); White Blood Count 10.3 K/mm3 (4.5-10.0)
--- NOTE | 2021-07-01 23:44 | ED.FEMALEGU ---
HPI - Female Genitourinary General Chief complaint: Vaginal Bleeding Stated complaint: 12 weeks preg with bloody discharge Time Seen by Provider: 07/01/21 22:37 History of Present Illness HPI Narrative: Patient is a 30-year-old female who presents ER with bloody vaginal discharge. Began this evening. Patient has a known IUP. She sees Dr. Orosco. She is approximately 12 weeks in gestation. She had an ultrasound 05/30/2021 that showed a small subchorionic hemorrhage. Patient also reports ultrasound earlier this week that showed vigorous movement. She is having no burning urination or frequency urgency. Patient reports she has had some issues with hyperemesis during her . Related Data Home Medications Medication Instructions Recorded Confirmed metoclopramide HCl 10 mg PO Q6H PRN 06/08/21 06/21/21 ondansetron 4 mg PO Q6H 06/08/21 06/22/21 promethazine 12.5 mg PO Q4H 06/08/21 06/22/21 Allergies Allergy/AdvReac Type Severity Reaction Status Date / Time azithromycin Allergy Swelling Verified 07/01/21 20:21 of Lip/Tongue/Throat cephalexin Allergy Swelling Verified 07/01/21 20:21 of Lip/Tongue/Throat ciprofloxacin [From Cipro] Allergy Swelling Verified 07/01/21 20:21 of Lip/Tongue/Throat Penicillins Allergy Swelling Verified 07/01/21 20:21 of Lip/Tongue/Throat Review of Systems Review of Systems: All systems reviewed & are unremarkable except as noted in HPI and below Constitutional: Constitutional: Denies chills and Denies fatigue Gastrointestinal: Gastrointestinal: Denies abdominal pain, Reports nausea and Denies vomiting Genitourinary: Genitourinary: Reports abnormal vaginal bleeding, Denies dysuria and Denies vaginal discharge [facility] Past Medical History Medical History (Updated 07/02/21 @ 01:00 by Eliceo Sloan MD) Patient denies significant medical history Surgical History Surgical History (Updated 07/01/21 @ 23:46 by Eliceo Sloan MD) No pertinent past surgical history Social History Social History Smoking status: Never smoker Gender identity (if verbalized by the patient): Female Sexual Orientation (if Verbalized by the Patient): Straight or Heterosexual Exam Narrative: GENERAL: Well-appearing, well-nourished, and in no acute distress. HEAD: Normocephalic, atraumatic. CHEST: Clear to auscultation. No respiratory distress. HEART: Regular rate and rhythm. Normal peripheral pulses. ABDOMEN: Soft, nontender, nondistended. : Normal external genitalia. Small amount of brown discharge within the vagina with white discharge as well. No active bleeding. Cervix normal appearance. EXTREMITIES: Normal range of motion. No edema. SKIN: Warm, dry, no rash. NEURO: Alert and oriented x3. PSYCH: Normal mood and affect. Course Course Emergency Course: Bedside ultrasound with positive heart tones and vigorous movement. Patient may have passed blood from her subchorionic hemorrhage. Blood type is A-. Patient will receive RhoGam. Discussed with Dr. Luis Melendez. Vital Signs Vital signs: Vital Signs Temperature 98.2 F 07/01/21 20:18 Pulse Rate 90 07/01/21 20:18 Respiratory Rate 16 07/01/21 20:18 Blood Pressure 123/87 07/01/21 20:18 Pulse Oximetry 100 07/01/21 20:18 Temperature 98.2 F 07/01/21 20:18 Pulse Rate 91 07/01/21 22:38 Respiratory Rate 14 07/01/21 22:38 Blood Pressure 106/81 07/01/21 22:38 Pulse Oximetry 100 07/01/21 22:38 MDM - Female Genitourinary Lab Data Result diagrams: 07/01/21 22:48 Labs: Lab Results 07/01/21 07/01/21 07/01/21 Range/Units 22:48 22:48 22:48 WBC 10.3 H (4.5-10.0) K/mm3 RBC 4.41 (4.2-5.4) M/mm3 Hgb 13.1 (12.0-15.0) g/dL Hct 38.0 (37.0-47.0) % MCV 86.2 (80-100) fl MCH 29.7 (26-34) pg MCHC 34.5 (32-36) g/dl RDW 11.9 (11.5-14.5)
[2021-07-02] MEDS: RHO(D) IMMUNE GLOBULIN 300 MCG/2 ML SYRINGE IM (00:47)
[2021-07-02 02:13] VITALS: BP 111/83; PULSE 83; RESP 16; O2SAT 100
== END 2021-07-02 02:13 | disposition home or self-care (01) ==
PROVIDERS: Emergency Medicine; Emergency Provider Emergency Medicine; PCP Nurse Practitioner Family
DX: O20.9 Hemorrhage in early pregnancy, unspecified (principal); Z3A.12 12 weeks gestation of pregnancy
CPT/HCPCS: 36415; 84702; 85025; 85461; 90384; 96372; 99284; J2790

== ENCOUNTER 2021-11-07 16:15 | Outpatient (RCR) | payer BC, SELFPAY ==
[2021-11-09] MEDS: RHO(D) IMMUNE GLOBULIN 300 MCG/2 ML SYRINGE IM (16:41)
[2021-12-31 16:20] VITALS: BP 128/103; PULSE 85
[2021-12-31 16:22] VITALS: BP 137/89; PULSE 75
[2021-12-31 16:30] VITALS: BP 142/98; PULSE 73
[2021-12-31 16:45] VITALS: BP 142/98; PULSE 70
[2021-12-31 16:47] VITALS: BP 141/98; PULSE 75
[2021-12-31 17:00] VITALS: BP 140/95; PULSE 69
== END 2022-02-05 23:59 | disposition home or self-care (01) ==
LOC: ANHLAB 16:15
PROVIDERS: PCP Nurse Practitioner Family; Visit Provider Student in an Organized Health Care Education/Training Program
DX: Z29.13 Encounter for prophylactic Rho(D) immune globulin (principal); O36.0190 Maternal care for anti-D [Rh] antibodies, unspecified trimester, not applicable or unspecified; Z3A.00 Weeks of gestation of pregnancy not specified
CPT/HCPCS: 36415; 85461; 90384; 96372; J2790

== ENCOUNTER 2021-12-18 16:30 | Outpatient (CLI) | payer BC, SELFPAY ==
--- NOTE | ~2021-12-18 | US_ITS ---
EXAMINATION: US OB follow up DATE: 12/18/2021 17:21 INDICATION: . Intrauterine growth restriction. TECHNIQUE: Real-time ultrasound of the pelvis was performed. COMPARISON: Ultrasound 05/30/2021 FINDINGS: There is a single living fetus in vertex presentation. The placenta is fundal. heart rate is 1 50 beats per minute (bpm). The amniotic fluid index is 15.5 cm, which is normal. The following biometric data were obtained: Biparietal diameter (BPD): 8.8 cm; head circumference (HC): 32.8 cm; abdominal circumference (AC): 30 .5 cm; femur length (FL): 6.6 cm. These measurements are concordant. Estimated weight is 2490 g +/- 373 g, which correlates with the 6th percentile when 01/05/22 is u sed as estimated date of delivery. As single measurements, these parameters are each equal to the following estimated gestational ages: BPD: 35 weeks 4 days. HC: 37 weeks 2 days. AC: 34 weeks 3 days. FL: 33 weeks 6 days. estimated gestational age based solely on measurements from this exam is 35 weeks 2 days +/- 2 weeks 3 days. IMPRESSION: 1. Single living fetus in vertex presentation. 2. Small for gestational age. Estimated weight is 2490 g +/- 373 g, which correlates with the 6 th percentile when 01/05/22 is used as estimated date of delivery. Note that the ultrasound from 021 demonstrated an estimated gestational age of 201/19/2022. Reviewed, dictated and finalized at location A. FOLIO DIRECTOR IMPRESSION: 1. Single living fetus in vertex presentation. 2. Small for gestational age. Estimated weight is 2490 g +/- 373 g, which correlates with the 6th percentile when 01/05/22 is used as estimated date of de livery. Note that the ultrasound from 05/30/2021 demonstrated an estimated gesta tional age of 201/19/2022.
== END 2021-12-18 16:31 | disposition home or self-care (01) ==
PROVIDERS: Visit Provider Student in an Organized Health Care Education/Training Program
DX: Z36.89 Encounter for other specified antenatal screening (principal); O26.843 Uterine size-date discrepancy, third trimester
CPT/HCPCS: 76816

== ENCOUNTER 2021-12-31 16:11 | Outpatient (RCR) | payer BC, SELFPAY ==
[2021-12-24 17:52] VITALS: BP 122/90; PULSE 84
[2021-12-28 16:54] VITALS: BP 128/80; PULSE 90
--- NOTE | ~2021-12-31 | US_ITS ---
EXAMINATION: 1. US OB BPP wo non-stress 2. US umbilical doppler DATE: 12/28/2021 17:12 INDICATION: Small for gestational age. Third trimester. TECHNIQUE: Real-time pelvic ultrasound was performed. COMPARISON: Ultrasound 12/18/2021, 05/30/2021 FINDINGS: There is a single living fetus in vertex presentation. The placenta is posterior. heart rate i s 149 beats per minute (bpm). Biophysical profile performed by the technologist: breathing (30 sec sustained breathing in 30 minutes): 2 out of 2 movement (3 gross body movements in 30 minutes): 2 out of 2 tone (one episode of hzmhaeg-huwinocge-ddvfzhd limb movement): 2 out of 2 Amniotic fluid pocket (2 cm): 2 out of 2 Total score: 8 out of 8 Umbilical artery pulsed Doppler demonstrates a peak systolic to end-diastolic velocity ratio (S/D rat io) of 2.1 (5th percentile = 1.90, 95th percentile = 3.08). IMPRESSION: 1. Single living fetus in vertex presentation. 2. Biophysical profile 8 out of 8. 3. Normal umbilical artery Doppler. Reviewed, dictated and finalized at location A. ICAL INSTRUMENT TECHNICIAN IMPRESSION: 1. Single living fetus in vertex presentation. 2. Biophysical profile 8 out of 8. 3. Normal umbilical artery Doppler.
--- NOTE | 2021-12-31 17:06 | PC.NURSE ---
Spoke with Dr. Orosco per phone. Update on blood pressures. [facility] labs ordered. Will discharge pt home and Dr. Orosco will call if needed for abnormal labs.
[2021-12-31 17:32] VITALS: BP 140/95; PULSE 72
[2021-12-31 17:48] LABS: Basophils Percent Auto 0.3 % (0.2-1.2); Eosinophils Absolute Auto 0.1 K/mm3 (0-0.3); Eosinophils Percent Auto 0.9 % (0-4.4); Hematocrit 34.6 % (37.0-47.0); Hemoglobin 11.3 g/dL (12.0-15.0); Immature Granulocyte Absolute 0.07 K/mm3 (0.00-0.031); Immature Granulocyte Percent A 0.6 % (0-0.5); Lymphocytes Absolute Auto 2.23 K/mm3 (0.9-3.2); Mean Corpuscular HGB Conc 32.7 g/dl (32-36); Mean Corpuscular Hemoglobin 28.8 pg (26-34); Mean Corpuscular Volume 88.3 fl (80-100); Mean Platelet Volume 10.1 fl (7.4-10.4); Monocytes Absolute Auto 0.8 K/mm3 (0.1-0.6); Neutrophils Absolute Auto 8.4 K/mm3 (1.3-6.7); Neutrophils Percent Auto 72.2 % (45.5-73.1); Platelet Count Result 233 k/mm3 (150-375); Red Blood Count 3.92 M/mm3 (4.2-5.4); Red Cell Distribution Width 13.2 % (11.5-14.5); White Blood Count 11.7 K/mm3 (4.5-10.0)
[2021-12-31 17:52] LABS: Creatinine Urine 38.1 mg/dL; Total Protein Urine Random 20 mg/dL; Ur Ttl Prot Creatinine Ratio 0.52 mg/mg (0-0.20)
[2021-12-31 17:54] LABS: Add Urine Microscopic? YES; Appearance Urine Cloudy (Clear); Bacteria Urine 4+ /hpf; Bilirubin Urine Negative (Negative); Blood Urine Negative (Negative); Color Urine Yellow (Yellow); Glucose Urine UA Negative (Negative); Ketones Urine Negative (Negative); Leukocyte Esterase Ur 3+ LEU/UL (NEGATIVE); Mucus Urine Rare /lpf; Nitrate Urine Negative (Negative); Protein Urine 1+ mg/dL (Negative); Specific Grav Ur 1.009 (1.001-1.035); Squamous Epithelial Cell Urine Many /hpf (Few); Urobilinogen Urine Negative mg/dL (<2.0); WBC Urine 31-50 /hpf (0-3)
[2021-12-31 17:58] LABS: Alanine Aminotransferase 13 U/L (4-35); Albumin Level 3.6 g/dL (3.5-5.1); Alkaline Phosphatase 174 U/L (38-126); Anion Gap 5 mmol/L (8-16); Aspartate Amino Transferase 24 U/L (14-36); Bilirubin,Total 0.5 mg/dL (0.2-1.3); Blood Urea Nitrogen 11 mg/dL (7-17); Calcium 8.8 mg/dL (8.4-10.2); Carbon Dioxide 22 mmol/L (22-30); Chloride 105 mmol/L (98-107); Estimated Glomerular Filt Rate > 60; Glucose 78 mg/dL (65-110); Potassium 3.6 mmol/L (3.4-5.0); Sodium 132 mmol/L (137-145); Uric Acid 6.6 mg/dL (2.5-7.5)
--- NOTE | 2021-12-31 18:22 | PC.NURSE ---
Dr. Orosco notified of patient lab results. Pt has appt with him in AM>
== END 2022-01-04 20:35 | disposition home or self-care (01) ==
LOC: ANHOBOP 16:11
PROVIDERS: Visit Provider Student in an Organized Health Care Education/Training Program
DX: O36.5930 Maternal care for other known or suspected poor fetal growth, third trimester, not applicable or unspecified (principal); Z3A.37 37 weeks gestation of pregnancy; Z3A.38 38 weeks gestation of pregnancy
CPT/HCPCS: 36415; 59025; 76819; 76820; 80053; 81001; 82570; 84156; 84550; 85025; 87086

== ENCOUNTER 2022-01-02 16:37 | Inpatient (IN) | payer BC, SELFPAY ==
[2022-01-02] VITALS (14 sets, daily range): BP systolic 113–145; BP diastolic 71–100; PULSE 67–88; BMI 25.9
--- NOTE | 2022-01-02 17:02 | WPDANESEPP ---
Anes - Eval Pre Procedure Procedure: Labor epidural Date/Time: 01/02/22 17:02 Preop Diagnosis: Abd pain with contractions Pre Op Diagnosis: Induction of Labor Patient Data Age: 31 Gender: F Height: Weight: Allergies Allergy/AdvReac Type Severity Reaction Status Date / Time azithromycin Allergy Swelling Verified 07/01/21 20:21 of Lip/Tongue/Throat cephalexin Allergy Swelling Verified 07/01/21 20:21 of Lip/Tongue/Throat ciprofloxacin [From Cipro] Allergy Swelling Verified 07/01/21 20:21 of Lip/Tongue/Throat Penicillins Allergy Swelling Verified 07/01/21 20:21 of Lip/Tongue/Throat Home Medications Medication Instructions Recorded Confirmed Type PNV cmb#95-ferrous fumarate-FA 1 tablet PO DAILY 12/08/21 12/08/21 History [] Patient hx anesthesia problems: none Family hx anesthesia problems: none Results Review: All pre-operative results and documents have been reviewed as part of the pre-operative evaluation. [facility] Past Medical History Medical History Overweight (BMI 25.0-29.9) Patient denies significant medical history PIH ( induced hypertension) and not yet delivered Surgical History Surgical History No pertinent past surgical history Family History Family History Mother Migraines Anxiety Depression Father Diabetes mellitus Social History Social History Smoking status: Never smoker Substance use: never Gender identity (if verbalized by the patient): Female Sexual Orientation (if Verbalized by the Patient): Straight or Heterosexual Spiritual care concerns: No Exam Day of Procedure 01/02/22 17:02 Patient weight: overweight Airway: Mallampati scale class II Neurological: alert and oriented
[2022-01-02 17:42] LABS: Basophils Percent Auto 0.4 % (0.2-1.2); Eosinophils Absolute Auto 0.1 K/mm3 (0-0.3); Eosinophils Percent Auto 0.8 % (0-4.4); Hematocrit 35.2 % (37.0-47.0); Hemoglobin 11.6 g/dL (12.0-15.0); Immature Granulocyte Absolute 0.04 K/mm3 (0.00-0.031); Immature Granulocyte Percent A 0.4 % (0-0.5); Lymphocytes Absolute Auto 1.82 K/mm3 (0.9-3.2); Lymphocytes Percent Auto 18.4 % (18.3-44.2); Mean Corpuscular Hemoglobin 28.9 pg (26-34); Mean Corpuscular Volume 87.8 fl (80-100); Monocytes Absolute Auto 0.7 K/mm3 (0.1-0.6); Monocytes Percent Auto 7.4 % (2.6-8.5); Neutrophils Absolute Auto 7.2 K/mm3 (1.3-6.7); Neutrophils Percent Auto 72.6 % (45.5-73.1); Platelet Count Result 236 k/mm3 (150-375); Red Blood Count 4.01 M/mm3 (4.2-5.4); Red Cell Distribution Width 13.2 % (11.5-14.5); White Blood Count 9.9 K/mm3 (4.5-10.0)
[2022-01-02 17:52] LABS: Alanine Aminotransferase 14 U/L (4-35); Albumin Level 3.7 g/dL (3.5-5.1); Alkaline Phosphatase 154 U/L (38-126); Anion Gap 3 mmol/L (8-16); Aspartate Amino Transferase 24 U/L (14-36); Bilirubin,Total 0.6 mg/dL (0.2-1.3); Blood Urea Nitrogen 12 mg/dL (7-17); Calcium 9.4 mg/dL (8.4-10.2); Carbon Dioxide 23 mmol/L (22-30); Chloride 108 mmol/L (98-107); Estimated Glomerular Filt Rate > 60; Glucose 94 mg/dL (65-110); Potassium 4.2 mmol/L (3.4-5.0); Sodium 134 mmol/L (137-145)
[2022-01-02] MEDS: DINOPROSTONE 10 MG VAG INSERT VAGINAL (17:57)
--- NOTE | 2022-01-02 18:22 | LDADM ---
This patient, Tiff Christine, was admitted to Labor/Delivery/Recovery 103 on 01/02/22 at 16:37. Plans for labor, pain management and were discussed with patient. Patient/family oriented to hospital policies and general routines including ID bracelet, bed and alarms, visiting hours, pain management, procedures, bathroom and other care routines, personal items, smoking policy, room service/diet and guest tray routines, infant security routines, and visiting hours. Patient/Family are encouraged to report perceived risks to care and to ask questions if they do not understand what they are told or what they should do. See OBIX for further documentation.
[2022-01-03] VITALS (222 sets, daily range): BP systolic 97–149; BP diastolic 41–98; PULSE 55–155; TEMP 36.6–38.7; O2SAT 97–100
[2022-01-03 05:55] LABS: Rapid Plasma Reagin Non-Reactive (NonReactive)
[2022-01-03] MEDS: LACTATED RINGERS 1,000 ML 125 ML IV CONT ×3 (06:15→19:45)
[2022-01-03] MEDS: fentaNYL CITRATE INJ (*CRX) 100 MCG/2 ML VIAL 50 MCG IV PUSH ×3 (06:24→11:38)
[2022-01-03] MEDS: OXYTOCIN 30 UNITS/NS 500 ML 30 UNITS/500 ML BAG 6 UNITS IV CONT (06:26)
[2022-01-03] MEDS: LACTATED RINGERS 1,000 ML 999 ML IV CONT (11:51)
--- NOTE | 2022-01-03 11:56 | WPDANESEPPF ---
Anes - Initial Pre Proc Eval Date/Time: 01/03/22 11:56 Surgeon: David Orosco MD Pre Op Diagnosis: Induction of Labor Patient Data Age: 31 Gender: F Height: 1.68 m Weight: 73.1 kg Last Vital Signs Temp 37.2 C 01/03/22 11:10 Pulse 83 01/03/22 11:55 BP 134/88 01/03/22 11:55 Pulse Ox 98 01/03/22 11:51 Allergies Allergy/AdvReac Type Severity Reaction Status Date / Time azithromycin Allergy Swelling Verified 07/01/21 20:21 of Lip/Tongue/Throat cephalexin Allergy Swelling Verified 07/01/21 20:21 of Lip/Tongue/Throat ciprofloxacin [From Cipro] Allergy Swelling Verified 07/01/21 20:21 of Lip/Tongue/Throat Penicillins Allergy Swelling Verified 07/01/21 20:21 of Lip/Tongue/Throat Home Medications Medication Instructions Recorded Confirmed Type PNV cmb#95-ferrous fumarate-FA 1 tablet PO DAILY 12/08/21 12/08/21 History [] Laboratory Tests 01/02/22 01/02/22 01/02/22 17:13 17:13 17:13 WBC 9.9 K/mm3 K/mm3 (4.5-10.0) RBC 4.01 M/mm3 L M/mm3 (4.2-5.4) Hgb 11.6 g/dL L g/dL (12.0-15.0) Hct 35.2 % L % (37.0-47.0) MCV 87.8 fl fl (80-100) MCH 28.9 pg pg (26-34) MCHC 33.0 g/dl g/dl (32-36) RDW 13.2 % % (11.5-14.5) Plt Count 236 k/mm3 k/mm3 (150-375) MPV 10.0 fl fl (7.4-10.4) Immature Gran % (Auto) 0.4 % % (0-0.5) Neut % (Auto) 72.6 % % (45.5-73.1) Lymph % (Auto) 18.4 % % (18.3-44.2) Riley % (Auto) 7.4 % % (2.6-8.5) Eos % (Auto) 0.8 % % (0-4.4) Baso % (Auto) 0.4 % % (0.2-1.2) Lymph # (Auto) 1.82 K/mm3 K/mm3 (0.9-3.2) Riley # (Auto) 0.7 K/mm3 H K/mm3 (0.1-0.6) Eos # (Auto) 0.1 K/mm3 K/mm3 (0-0.3) Baso # (Auto) 0.0 K/mm3 K/mm3 (0.0-0.1) Abs Immat Gran (auto) 0.04 K/mm3 H K/mm3 (0.00-0.031) Absolute Neuts (auto) 7.2 K/mm3 H K/mm3 (1.3-6.7) Absolute Nucleated RBC 0.0 K/mm3 K/mm3 (0.0-0.012) Nucleated RBC % 0.0 % % (0.0-0.2) Sodium Potassium Chloride Carbon Dioxide Anion Gap BUN Creatinine Estim Creat Clear Calc Estimated GFR Glucose Calcium Total Bilirubin AST ALT Alkaline Phosphatase Total Protein Albumin RPR Non-reactive (NonReactive) Blood Type A Negative Antibody Screen Positive Antibody Identification Passive Due to RH Imm Glob Antigen Identification Cancelled SIERRA, IgG Interpret Not Performed SIERRA, Poly Interpret Negative SIERRA, Complement Interp Not Performed 01/02/22 17:13 WBC RBC Hgb Hct MCV MCH MCHC RDW Plt Count MPV Immature Gran % (Auto) Neut % (Auto) Lymph % (Auto) Riley % (Auto) Eos % (Auto) Baso % (Auto) Lymph # (Auto) Riley # (Auto) Eos # (Auto) Baso # (Auto) Abs Immat Gran (auto) Absolute Neuts (auto) Absolute Nucleated RBC Nucleated RBC % Sodium 134 mmol/L L mmol/L (137-145) Potassium 4.2 mmol/L mmol/L (3.4-5.0) Chloride 108 mmol/L H mmol/L (98-107) Carbon Dioxide 23 mmol/L mmol/L (22-30) Anion Gap 3 mmol/L L mmol/L (8-16) BUN 12 mg/dL mg/dL (7-17) Creatinine 0.90 mg/dL mg/dL (0.7-1.0) Estim Creat Clear Calc Not Reportable Estimated GFR > 60 (59 - ) Glucose 94 mg/dL mg/dL (65-110) Calcium 9.4 mg/dL mg/dL (8.4-10.2) Total Bilirubin 0.6 mg/dL mg/dL (0.2-1.3) AST 24 U/L U/L (14-36) ALT 14 U/L U/L (4-35) Alkaline P
--- NOTE | 2022-01-03 12:22 | PM.IMHP ---
H&P: HPI History of Present Illness Date/Time: 01/03/22 12:22 Chief Complaint: Intrauterine at term preeclampsia IUGR Narrative: 31 yo at 38w6d who presents for IOL for preeclampsia. Pt was noted to have elevated BP during testing. Labs returned with proteinuria giving the diagnosis of preeclampsia without severe features. Pt's has also been complicated by IUGR. She endorses good movement. She denies regular contractions, vaginal bleeding or leakage of fluid. Review of Systems Cardiovascular: Cardiovascular: Denies chest pain, Denies leg edema, Denies palpitations, Denies dyspnea and Denies dyspnea on exertion Respiratory: Respiratory: Denies cough, Denies dyspnea and Denies dyspnea on exertion Gastrointestinal: Gastrointestinal: Denies abdominal pain, Denies constipation, Denies diarrhea, Denies nausea and Denies vomiting Genitourinary: Genitourinary: Denies hematuria, Denies urinary frequency, Denies dysuria, Denies pelvic pain, Denies urinary incontinence and Denies vaginal discharge Neurologic: Reports system reviewed and no additional complaints, except as documented Psychiatric: Psychiatric: Reports no additional psychiatric complaints Endocrine: Endocrine: Denies palpitations PMFSH Past Medical History Medical History Overweight (BMI 25.0-29.9) Patient denies significant medical history PIH ( induced hypertension) and not yet delivered Surgical History Surgical History No pertinent past surgical history Family History Family History Mother Migraines Anxiety Depression Father Diabetes mellitus Social History Social History Smoking status: Never smoker Second hand tobacco smoke exposure: No Substance use: never Gender identity (if verbalized by the patient): Female Sexual Orientation (if Verbalized by the Patient): Straight or Heterosexual Spiritual care concerns: No Meds Home Medications and Allergies Home Medications Medication Instructions Recorded Confirmed Type PNV cmb#95-ferrous fumarate-FA 1 tablet PO DAILY 12/08/21 12/08/21 History [] Allergies Allergy/AdvReac Type Severity Reaction Status Date / Time azithromycin Allergy Swelling Verified 07/01/21 20:21 of Lip/Tongue/Throat cephalexin Allergy Swelling Verified 07/01/21 20:21 of Lip/Tongue/Throat ciprofloxacin [From Cipro] Allergy Swelling Verified 07/01/21 20:21 of Lip/Tongue/Throat Penicillins Allergy Swelling Verified 07/01/21 20:21 of Lip/Tongue/Throat Vital Signs Vital Signs - 24 hr 01/02/22 17:15 01/02/22 17:45 01/02/22 18:00 Temperature Pulse Rate 88 81 76 Blood Pressure 144/97 H 145/98 H 138/93 H Pulse Oximetry 01/02/22 18:30 01/02/22 19:00 01/02/22 19:30 Temperature Pulse Rate 86 68 78 Blood Pressure 129/96 H 134/89 139/100 H Pulse Oximetry 01/02/22 20:00 01/02/22 20:30 01/02/22 21:00 Temperature Pulse Rate 72 67 69 Blood Pressure 135/96 H 134/95 H 141/93 H Pulse Oximetry 01/02/22 21:31 01/02/22 22:00 01/02/22 22:30 Temperature Pulse Rate 68 74 67 Blood Pressure 124/73 134/85 126/84 Pulse Oximetry 01/02/22 23:00 01/02/22 23:30 01/03/22 00:00 Temperature Pulse Rate 67 72 67 Blood Pressure 129/86 113/71 117/81 Pulse Oximetry 01/03/22 00:30 01/03/22 01:00 01/03/22 01:30 Temperature Pulse Rate 75 81 80 Blood Pressure 124/85 130/87 123/72 Pulse Oximetry 01/03/22 02:00 01/03/22 02:30 01/03/22 03:00 Temperature Pulse Rate 81 82 78 Blood Pressure 127/88 127/84 129/87 Pulse Oximetry 01/03/22 03:30 01/03/22 04:00 01/03/22 04:30 Temperature 36.6 C Pulse Rate 76 76 75 Bl
--- NOTE | 2022-01-03 22:56 | PM.OBPRVD ---
OB - Delivery Note Procedure Delivery date: 01/03/22 events: Labor Induction Intrapartal events: None Induction method: per cervidil protocol Delivery augmentation: pitocin Delivery monitor: external FHT and internal uterine Route of delivery: Episiotomy description: None Laceration Description: None Quantitative Blood Loss (ml): 59 Anesthesia type: Epidural Disposition: floor Baby Date of : 01/03/22 Time of : 22:44 Weeks of gestation at delivery: 38 Infant gender: Male presentation: vertex position: Right Occiput Anterior Placenta delivery description: Spontaneous cord vessel description: 3 Vessels score one minute: 8 score five minutes: 9
[2022-01-03] MEDS: OXYTOCIN 30 UNITS/NS 500 ML 30 UNITS/500 ML BAG 125 UNITS IV CONT (23:27)
[2022-01-04] VITALS (9 sets, daily range): BP systolic 113–148; BP diastolic 72–92; PULSE 67–87; RESP 18; TEMP 36.3–37; O2SAT 73–99
[2022-01-04] MEDS: BENZOCAINE 20% AER SPR (*SP) 56 GM CAN 1 SPRAY TOPICAL (01:03)
[2022-01-04] MEDS: IBUPROFEN 600 MG TABLET PO ×3 (01:03→17:36)
[2022-01-04] MEDS: WITCH HAZEL 40 PADS 1 PAD TOPICAL (01:03)
[2022-01-04 05:12] LABS: Hematocrit 31.8 % (37.0-47.0); Hemoglobin 10.6 g/dL (12.0-15.0)
[2022-01-04] MEDS: HYDROcodone/acetaminophen (*CRX) 5-325 MG TABLET 1 TAB PO (07:04)
--- NOTE | 2022-01-04 07:58 | PC.NURSE ---
0740 - Introductions were made and mother led the discussion of her desires and plan to feed her baby. Reviewed handwashing to prevent infection before and after taking care of her baby. Mother verbalizes she is able to independently latch infant without discomfort. Discussed how to watch for early feeding cues, place skin to skin, then feeding baby when infant is ready or every 2-3 hours. Mother has verbalized understanding watching for feeding cues for responsive feeding or how to stimulate to initiate from the start of the last feeding. Mother voiced understanding to feed infant when she sees feeding cues, 8-12 times in 24 hours approximately every 2-3 hours from the start of the last feeding or she has discomfort with nursing. Mother will call out for assistance or latch assessment.
--- NOTE | 2022-01-04 08:08 | PM.OBPNVD ---
OB - PN: Subj Subjective Date/time seen: 01/04/22 08:08 Patient comments: no complaints and pain well controlled baby status: doing well OB - PN: Obj Data Labs CBC & Chem 7: 01/04/22 03:14 01/02/22 17:13 Labs: Laboratory Results - last 24 hr 01/04/22 03:14 Hgb 10.6 L Hct 31.8 L OB - PN A/P Plan day: 1 Plan: routine care Time Spent With Patient Time: Total time spent is greater than 50% in coordination of care (as documented) at patient's floor/unit and/or counseling patient: Time with patient: less than 15 minutes Review of Systems Review of Systems: All systems reviewed & are unremarkable except as noted in HPI and below Exam Const: General: no acute distress Eyes: General: appearance normal, both eyes and all related structures Neck: Neck: supple and no JVD Thyroid: thyroid normal Resp: Effort & Inspection: normal respiratory effort Auscultation: clear to auscultation bilaterally Cardio: Rate: regular rate Rhythm: regular rhythm GI: Inspection: non-distended GI Palp: Yes Soft to palpation, No Tenderness to palpation present (GI) and No Guarding due to palpation present (GI) Auscultation: normal bowel sounds : General: Yes bladder normal to palpation External Female Exam: normal external appearance Speculum Exam - Vagina: normal vaginal discharge and No vaginal bleeding Speculum Exam - Cervix: nontender Bimanual exam- vagina & uterus: bladder normal to palpation and No Cervical tenderness present OB/external & speculum: No vaginal bleeding Skin: General skin exam: no rashes or lesions noted Extrem: General: normal to inspection and no edema Psych: Mental Status: mental status grossly normal Affect: normal affect
[2022-01-04] MEDS: MULTIVIT/MIN/PREN/FOL AC/IRON TABLET 1 TAB PO (09:51)
[2022-01-04] MEDS: ACETAMINOPHEN 325 MG TABLET 650 MG PO (17:36)
[2022-01-04] MEDS: DOCUSATE SODIUM 100 MG CAPSULE PO (17:36)
[2022-01-05 05:30] VITALS: BP 127/87
--- NOTE | 2022-01-05 07:25 | PM.OBPNVD ---
OB - PN: Subj Subjective Date/time seen: 01/05/22 07:25 Narrative: Pain OK. Would like to go home. OB - PN: Obj Data Labs CBC & Chem 7: 01/04/22 03:14 01/02/22 17:13 OB - PN A/P Plan Comments: A: PPD#2, doing well. P: Home to f/u 6 weeks. Exam Psych: Other: AVSS ABD soft, nontender, fundus firm EXT nontender
--- NOTE | 2022-01-05 07:30 | PM.OBDSVD ---
DS: Admitting Diagnosis Discharge Date 01/05/22 Admitting Diagnosis Call or return if temperature above 100.4? F, increased abdominal pain, increased vaginal bleeding or any new problems. DS: Discharge Diagnosis Discharge Diagnosis (1) Preeclampsia: Code(s): O14.90 - Unspecified pre-eclampsia, unspecified trimester Status: Acute (2) (normal spontaneous vaginal delivery): Code(s): O80 - Encounter for full-term uncomplicated delivery Status: Acute OB - DS: Summary OB Procedures : PIH Mgmt OB Procedures Intrapartum: Spontaneous Vag Delivery OB Procedures: : None Discharge Plan Discharge Attending physician on discharge: David Orosco Discharging Clinician: Mars De Patient Disposition: Home, Self-Care Activity: pelvic rest Diet: regular Discharge Instructions: Call or return if temperature above 100.4? F, increased abdominal pain, increased vaginal bleeding or any new problems. Stand Alone Forms: General Discharge Information Follow-up/Referrals: David Orosco MD [Physician] - 6 Weeks Discharge Medications: New ibuprofen 600 mg tablet 600 mg PO Q6H PRN (Reason: cramps) Qty: 30 RF: 0 Continued PNV [id number] fumarate-FA [] 28 mg iron- 800 mcg Tablet 1 tablet PO DAILY RF: 0 Date of admission: 01/02/22 16:37 Primary Care Provider: PHYSICIAN,TRANSFER PUMPER Admitting Provider: Dvaid Orosco Attending physician on admission: David Orosco Condition: Stable
--- NOTE | 2022-01-05 08:53 | PC.NURSE ---
0600 Patient viewed the discharge video Mother & Baby Care, The First Two Weeks . Patient was given the opportunity and encouraged to ask questions. Patient verbalized understanding of information shared and has been given the mother/baby guide for home reference.
[2022-01-05 09:11] VITALS: BP 143/98; PULSE 80; RESP 16; TEMP 36.7; O2SAT 98
[2022-01-05] MEDS: DOCUSATE SODIUM 100 MG CAPSULE PO (09:11)
[2022-01-05] MEDS: IBUPROFEN 600 MG TABLET PO (09:11)
[2022-01-05] MEDS: MULTIVIT/MIN/PREN/FOL AC/IRON TABLET 1 TAB PO (09:11)
[2022-01-05] MEDS: HYDROcodone/acetaminophen (*CRX) 5-325 MG TABLET 1 TAB PO (09:50)
[2022-01-05 09:56] VITALS: BP 134/92
[2022-01-08 10:47] VITALS: BP 132/82; PULSE 83; RESP 16; TEMP 37.3; O2SAT 99
== END 2022-01-05 11:37 | disposition home or self-care (01) | DRG 807 ==
LOC: ANHLDR 01-03 07:26 → ANHOB2 01-05 07:28 → ANHLDR 01-08 08:49 → ANHOB2 01-08 08:49
PROVIDERS: Obstetrics & Gynecology; Admitting Provider Student in an Organized Health Care Education/Training Program; Visit Provider Obstetrics & Gynecology
DX: O75.2 Pyrexia during labor, not elsewhere classified (principal); Z37.0 Single live birth; O36.5930 Maternal care for other known or suspected poor fetal growth, third trimester, not applicable or unspecified; O14.04 Mild to moderate pre-eclampsia, complicating childbirth; O76 Abnormality in fetal heart rate and rhythm complicating labor and delivery; Z3A.38 38 weeks gestation of pregnancy
CPT/HCPCS: 36415; 80053; 85014; 85018; 85025; 86592; 86850; 86880; 86900; 86901; 86902; A9270; J0131; J2590; J2795; J3010; J7120

== ENCOUNTER 2022-09-08 08:20 | Emergency (ER) | payer BC, SELFPAY ==
[2022-09-08 08:22] VITALS: BP 141/92; PULSE 78; RESP 16; TEMP 37; O2SAT 100
--- NOTE | 2022-09-08 09:37 | ED.EYEPROB ---
HPI - Eye Problem General Chief complaint: Eye Problems Stated complaint: right eye pain Time Seen by Provider: 09/08/22 08:21 Source: patient Mode of arrival: ambulatory Limitations: no limitations History of Present Illness HPI Narrative: This is a 32-year-old female that presents to the emergency department for right eye irritation noted since this morning. Reports her 8-month-old scratched her eye. She has tearing, redness, and blurry vision in the eye. Denies fevers or vomiting. Related Data Home Medications Medication Instructions Recorded Confirmed No Home Medications 09/08/22 09/08/22 Allergies Allergy/AdvReac Type Severity Reaction Status Date / Time azithromycin Allergy Swelling Verified 09/08/22 08:25 of Lip/Tongue/Throat cephalexin Allergy Swelling Verified 09/08/22 08:25 of Lip/Tongue/Throat ciprofloxacin [From Cipro] Allergy Swelling Verified 09/08/22 08:25 of Lip/Tongue/Throat Penicillins Allergy Swelling Verified 09/08/22 08:25 of Lip/Tongue/Throat Review of Systems Review of Systems: CONSTITUTIONAL: Denies fever EYES: Reports visual changes, redness, and tearing All systems reviewed & are unremarkable except as noted in HPI and below PMFSH Past Medical History Medical History Overweight (BMI 25.0-29.9) Patient denies significant medical history PIH ( induced hypertension) and not yet delivered Surgical History Surgical History No pertinent past surgical history Family History Family History Mother Migraines Anxiety Depression Father Diabetes mellitus Social History Social History Smoking status: Never smoker Second hand tobacco smoke exposure: No Substance use: never Gender identity (if verbalized by the patient): Female Sexual Orientation (if Verbalized by the Patient): Straight or Heterosexual Spiritual care concerns: No Exam Narrative: GENERAL: Well-appearing, well-nourished, and in no acute distress. HEAD: Normocephalic, atraumatic. EYES: PERRLA and EOMI. Right conjunctival injection and tearing. No foreign bodies noted. Positive fluorescein stain uptake noted with a moderate sized corneal abrasion superior/laterally. Visual acuity on the right 20/70, on the left 20/30 EXTREMITIES: Normal range of motion. No edema. SKIN: Warm, dry, no rash. NEURO: No focal deficits. Alert and oriented x3. PSYCH: Normal mood and affect Course Vital Signs Vital signs: Vital Signs Temperature 98.6 F 09/08/22 08:22 Pulse Rate 78 09/08/22 08:22 Respiratory Rate 16 09/08/22 08:22 Blood Pressure 141/92 H 09/08/22 08:22 Pulse Oximetry 100 09/08/22 08:22 Oxygen Delivery Room Air 09/08/22 08:22 Temperature 98.6 F 09/08/22 08:22 Pulse Rate 78 09/08/22 08:22 Respiratory Rate 16 09/08/22 08:22 Blood Pressure 141/92 H 09/08/22 08:22 Pulse Oximetry 100 09/08/22 08:22 Oxygen Delivery Room Air 09/08/22 08:22 MDM - Eye Problem MDM Narrative Medical decision making narrative: Patient presents to the emergency department for right eye redness, tearing and irritation. Reports her son scratched her eye. Patient's exam shows a moderate sized corneal abrasion on the right. Visual acuity is noted to be reduced on this side. This is likely due to the abrasion being in the patient's visual axis. There are no other concerning features on exam. I did instruct patient to call in the morning to make an appointment to have some close follow-up with ophthalmology. In the meantime she will be started on topical antibiotics to help with healing. She was given warnings to return to the ER Critical Care Time Critical Care Time Critical Care Time: No Disc
== END 2022-09-08 10:00 | disposition home or self-care (01) ==
PROVIDERS: Emergency Provider Emergency Medicine
DX: S05.01XA Injury of conjunctiva and corneal abrasion without foreign body, right eye, initial encounter (principal); E66.3 Overweight; Z68.24 Body mass index [BMI] 24.0-24.9, adult; W51.XXXA Accidental striking against or bumped into by another person, initial encounter
CPT/HCPCS: 99283; A9270